=== PATIENT | male | born 1965 | race Caucasian/White ===

== ENCOUNTER 2016-09-15 09:15 | Outpatient (CLI) | payer OTHER ==
[2016-09-15 10:10] LABS: eGFR (African) > 60; eGFR (Non-African) > 60
== END 2016-09-15 09:16 ==
LOC: LAB 09:15
PROVIDERS: ATTEND Family Medicine
DX: Z00.00 Encounter for general adult medical examination without abnormal findings (principal)
CPT/HCPCS: 36415; 80053; 80061

== ENCOUNTER 2016-11-30 09:21 | Day surgery (SDC) | payer OTHER ==
--- NOTE | 2016-11-30 12:40 | GI Report ---
REFERRING PHYSICIAN: Dr. Shiloh Roblero INCOMING FREIGHT CLERK: Teddy Garnica MD PROCEDURE MEDICATION: Propofol as per anesthesia. INDICATIONS: A 51-year-old man is referred for a screening colonoscopy. His only abdominal surgery was donating a kidney to his sister. PROCEDURE PERFORMED: Colonoscopy and biopsies. PROCEDURE: An Olympus video colonoscope was advanced to the rectum. The colonoscope is slowly advanced all the way to the cecum. The appendiceal orifice and ileocecal valve are normal. On slow withdrawal, the cecum, ascending colon, and transverse colon with no obvious intraluminal lesions noted. Descending colon, again, no obvious intraluminal lesions noted. In the sigmoid, there is nonspecific friability in the wall. We did take some random biopsies to submit to pathology. Question of microscopic colitis. Retroflexion of the rectum was normal. Patient tolerated the procedure well. FINDINGS: Kind of a nonspecific friability in the sigmoid colon. Biopsies were taken and are pending. RECOMMENDATIONS: 1. A high-fiber diet. 2. Pending the pathology of the biopsies, consider re-looking at his colon in 5 to 10 years. cc: Dr. Shiloh CLINE
== END 2016-11-30 09:22 ==
LOC: OPSURG 09:21
PROVIDERS: ATTEND Internal Medicine Gastroenterology
DX: Z12.11 Encounter for screening for malignant neoplasm of colon (principal); D12.5 Benign neoplasm of sigmoid colon
CPT/HCPCS: 45385; 88305; J2704; J7120; S1016

== ENCOUNTER 2017-01-26 09:54 | Outpatient (CLI) | payer OTHER ==
--- NOTE | 2017-01-26 13:49 | Diagnostic Imaging Report ---
SCOTTIE WATKINS [facility] [id number] [facility] [address] [place] [address]. [id number] Report Submission Date: Jan 26, 2017 10:55:48 AM CDT Patient Study Name: AMLIK JAMES Date: Jan 26, 2017 9:59:49 AM CDT Modality Type: CR Gender: M Description: SPINE : 67 Institution: [facility] Physician: SCOTTIE WATKINS Examination: Plain film lumbar spine History: Fall Findings: 3 views of the lumbar spine demonstrate normal height. No anterior compression. Few anterior osteophytes. Minimal l-5-S1 disc space narrowing. Abdominal surgical clips. No soft tissue abnormalities. Impression: Early degenerative changes. No acute osseous process Electronically signed on Jan 26, 2017 10:55:48 AM CDT by: Hank CLINE
== END 2017-01-26 09:55 ==
LOC: RAD 09:54
PROVIDERS: ATTEND Physician Assistant
DX: M54.42 Lumbago with sciatica, left side (principal)
CPT/HCPCS: 72100

== ENCOUNTER 2019-06-29 10:58 | Outpatient (CLI) | payer OTHER ==
[2019-06-29 12:38] LABS: BASOPHILS % 0.4 % (0.0-1.5)
[2019-06-29 12:39] LABS: NEUTROPHILS # 4.4 # k/uL (1.4-7.7)
[2019-06-29 12:40] LABS: SEGMENTED NEUTROPHILS % 73 % (39-79)
[2019-06-29 13:02] LABS: eGFR (Non-African) 55
[2019-06-29 13:03] LABS: HDL 50 mg/dL (>40)
== END 2019-06-29 11:03 ==
LOC: LAB 10:58
PROVIDERS: ATTEND Family Medicine
DX: Z13.220 Encounter for screening for lipoid disorders (principal); Z12.5 Encounter for screening for malignant neoplasm of prostate; Z13.0 Encounter for screening for diseases of the blood and blood-forming organs and certain disorders involving the immune mechanism; Z52.4 Kidney donor
CPT/HCPCS: 36415; 80053; 80061; 82043; 82570; 84153; 85025

== ENCOUNTER 2019-06-30 08:59 | Outpatient (CLI) | payer OTHER ==
--- NOTE | 2019-06-30 14:07 | Diagnostic Imaging Report ---
PATIENT MR#: [id number] PATIENT PATIENT NAME: MALIK JAMES DATE OF : 1965 REFERRING PHYSICIAN: Shiloh Roblero EXAM DATE: 06/30/2019 ACCESSION NUMBER: [id number] EXAM DESCRIPTION: US SCROTUM CONTENTS HISTORY: MASS ON LEFT TESTICLE COMPARISON: No relevant comparison is available at the time of interpretation. TECHNIQUE: Ultrasound of the bilateral testicles and scrotum was performed. Doppler color flow was pe rformed to evaluate testicular vascularity. SCROTAL ULTRASOUND: Right testicle: 4.4 x 2.3 x 2.9 cm. Normal vascular flow. No hydrocele or varicocele. Epididymis jessie sures 1.2 cm. Left testicle: 4.2 x 2.3 x 2.6 cm. Normal vascular flow. No hydrocele or varicocele. Epididymis jessie sures 1.2 cm and contains a 5 mm superficial cyst. IMPRESSION: No evidence of testicular mass or torsion. 5 mm left epididymal cyst. Correlate clinically to determine whether this cyst may represent the abno rmality felt on physical exam. Read by: Dr. Herrera Muniz Transcribed by: Herrera Muniz Transcribed Date: 06/30/2019 2:07:06 PM Electronically signed by: Dr. Herrera Muniz Date signed: 06/30/2019 2:07:06 PM
== END 2019-06-30 09:09 ==
LOC: RAD 08:59
PROVIDERS: ATTEND Family Medicine
DX: N50.89 Other specified disorders of the male genital organs (principal)
CPT/HCPCS: 76870